=== PATIENT | male | born 1945 | race Caucasian/White ===

== ENCOUNTER 2020-07-14 19:44 | Emergency (ER) | payer BC, OTHER ==
[~2020-07-14] VITALS: Ht 180.3 cm; Wt 108.9 kg
[2020-07-14 20:00] VITALS: BP_SYST 169
--- NOTE | 2020-07-14 20:02 | NUR ---
PT A&O X4 C/O OF LACERATION TO LEFT WRIST. PT REPORTS HE WAS TAKING OUT A FILING CABINENT AND IT DROPPED AND SLICED HIS WRIST. PT LAC APPEARS TO BE BLEEDING AND AROUND 4CM. PT STATES HE NORMALLY TAKES BABY ASPIRIN EVERY MORNING. PT RATES HIS PAIN 5 OUT OF 10. PT DENIES TAKING ANY MEDICATION FOR THE PAIN.
--- NOTE | 2020-07-14 20:07 | NUR ---
Pt placed to ER bed 05, report given to TK Leija.
--- NOTE | 2020-07-14 20:21 | NUR ---
ER Dr. CHUN at bedside examining patient.
[2020-07-14] MEDS ORDERED: SODIUM BICARBONATE 8.4% VIAL 50 MEQ/50 ML VIAL INJ ONE (20:30)
[2020-07-14] MEDS ORDERED: HYDROcodone/ACETAMIN 5-325 MG TAB (NORCO/ VICODIN) PO ONE (20:30)
[2020-07-14] MEDS ORDERED: LIDOCAINE/EPI 2% 1:100000 20 ML VIAL INJ ONE (20:30)
[2020-07-14] MEDS ORDERED: BACITRACIN 1 GM OINT TP ONE (20:30)
[2020-07-14] MEDS ORDERED: DIPH-TET Vacc 0.5 ML VIAL I.M. ONE (20:30)
--- NOTE | 2020-07-14 20:36 | NUR ---
XRAY AT BEDSIDE.
--- NOTE | 2020-07-14 20:41 | NUR ---
ALVERTO Reed at bedside performing laceration repair at bedside.
--- NOTE | 2020-07-14 21:06 | NUR ---
Patient has a 4 cm laceration to LEFT. ALVERTO Reed applied sutures using sterile technique. Edges well approximated. Site cleansed with iodine and normal saline. Dressing of nonadherent applied to site. No bleeding noted. Pt tolerated well.
[2020-07-14 21:28] VITALS: BP_SYST 141
--- NOTE | 2020-07-14 21:28 | NUR ---
Patient given written and verbal discharge instructions and verbalizes understanding. ER MD discussed with patient the results and treatment provided. Patient in stable condition. ID arm band removed. Rx of bacitracin and tylenol given. Patient educated on pain management and to follow up with PMD. Pain Scale 2/10. Opportunity for questions provided and answered. Medication side effect fact sheet provided.
== END 2020-07-14 21:28 | disposition home or self-care (01) ==
LOC: SED 19:44
DX: S61.512A Laceration without foreign body of left wrist, initial encounter (principal); I10 Essential (primary) hypertension; Z88.0 Allergy status to penicillin; W22.8XXA Striking against or struck by other objects, initial encounter; Y93.89 Activity, other specified; Y92.89 Other specified places as the place of occurrence of the external cause; Y99.8 Other external cause status
CPT/HCPCS: 90714; 99283